=== PATIENT | female | born 1985 | race African-American/Black ===

== ENCOUNTER 2016-10-04 12:58 | Emergency (ER) | payer MEDICAID ==
[~2016-10-04] VITALS: Ht 152.4 cm; Wt 64.0 kg
[2016-10-04 13:16] VITALS: BP 121/56
--- NOTE | 2016-10-04 13:28 | NUR ---
PT. PRESENTS TO ED WITH C/O DECREASED MOVEMENT SINCE LATE LAST NIGHT, PT. STATES SHE IS 20 WEEKS , NO VISIBLE SIGNS OF DISTRESS NOTED, BREATHING EVEN AND UNLABORED, AAOX4, AMBULATORY, GAIT STEADY
[2016-10-04 16:32] VITALS: BP 110/71
--- NOTE | 2016-10-04 16:33 | NUR ---
Patient discharged with v/s stable. Written and verbal after care instructions given and explained. Patient verbalized understanding. Ambulatory with steady gait. All questions addressed prior to discharge. Advised to follow up with PMD.
== END 2016-10-04 16:33 | disposition home or self-care (01) ==
LOC: MED 12:58
PROC: BY4CZZZ Ultrasonography of Second Trimester, Single Fetus (ICD-10-PCS; principal; 2016-10-04)
DX: O36.8120 Decreased fetal movements, second trimester, not applicable or unspecified (principal); O34.219 Maternal care for unspecified type scar from previous cesarean delivery; Z36 Encounter for antenatal screening of mother; Z3A.19 19 weeks gestation of pregnancy
CPT/HCPCS: 76805; 99284

== ENCOUNTER 2022-08-05 15:01 | Inpatient (IN) | payer MEDICAID ==
[~2022-08-05] VITALS: Ht 152.4 cm; Wt 53.5 kg
[2022-08-05] MEDS ORDERED: LORazepam 2 MG/ML VIAL ONE (15:03)
[2022-08-05 15:09] VITALS: BP 132/79
[2022-08-05] MEDS ORDERED: LORazepam 2 MG/ML VIAL IM ONE (15:10)
--- NOTE | 2022-08-05 15:12 | NUR ---
PT SCREAMING STATING THAT SHE CANT BREATHE, REFUSING TO ANSWER QUESTIONS
--- NOTE | 2022-08-05 15:15 | NUR ---
37F BIBA FROM STREETS WITH C/O ALTERED MENTAL STATUS. PER EMS, PT WAS FOUND IN STREETS RUNNING AND YELLING, STATING THAT SHE CAN'T BREATHE. EMS STATES PT TOOK METH AND CONSUMED ALCOHOL. PT AGITATED UPON ARRIVAL, CONTINUING TO STATE THAT SHE CANNOT BREATHE. O2 SATURATION UPON ARRIVAL IS 97% ON RA. PT PLACED ON BEDSIDE MONITOR, DR. ESPINOZA AT BEDSIDE EVALUATING PT.
[2022-08-05 16:07] LABS: BASOPHILS # (AUTO) 0.1 K/uL (0.00-0.22); EOSINOPHILS # (AUTO) 0.6 K/uL (0-0.4); EOSINOPHILS % (AUTO) 8.3 % (0.0-4.0); HEMATOCRIT 44.1 % (36-48); HEMOGLOBIN 14.8 g/dL (12.0-16.0); LYMPHOCYTES # (AUTO) 3.6 K/uL (2.5-16.5); LYMPHOCYTES % (AUTO) 48.5 % (20.5-51.1); MEAN CORPUSCULAR HEMOGLOBIN 31 pg (27-31); MEAN CORPUSCULAR HGB CONC 34 g/dL (33-37); MEAN CORPUSCULAR VOLUME 92.1 fL (80-94); MONOCYTES # (AUTO) 0.4 K/uL (0.8-1.0); MONOCYTES % (AUTO) 5.3 % (1.7-9.3); NEUTROPHILS # (AUTO) 2.7 K/uL (1.8-7.7); NEUTROPHILS % (AUTO) 35.9 % (42.2-75.2); PLATELET COUNT (AUTO) 341 K/uL (140-450); RED BLOOD CELL COUNT(AUTO) 4.79 MIL/uL (4.20-5.40); WHITE BLOOD COUNT (AUTO) 7.5 K/uL (4.8-10.8)
[2022-08-05 16:31] LABS: ANION GAP 19.1 (8-16); ASPARTATE AMINOTRANSFERASE 32 U/L (15-37); CARBON DIOXIDE 22.8 mmol/L (21-32); CHLORIDE 109 mmol/L (98-107); CREATININE 1.1 mg/dL (0.6-1.3); GFR ARICAN-AMERICAN 73 mL/min (>90); GLUCOSE 76 mg/dL (74-106); POTASSIUM 3.9 mmol/L (3.5-5.1); SODIUM SERUM 147 mmol/L (136-145); TOTAL BILIRUBIN 0.1 mg/dL (0.0-1.0); UREA NITROGEN, BLOOD 13 mg/dL (7-18)
--- NOTE | 2022-08-05 16:34 | NUR ---
PT TAKEN TO CT VIA RANGELA.
[2022-08-05 16:35] LABS: ACETAMINOPHEN < 0.5 ug/ml (10-30); SALICYLATE < 2.8 mg/dL (2.8-20.0)
[2022-08-05] MEDS ORDERED: LACTATED RINGERS 1,000 ML IV ONE ×2 (16:50→17:20)
--- NOTE | 2022-08-05 19:05 | NUR ---
JAN SWAB COLLECTED AND WALKED TO LAB.
--- NOTE | 2022-08-05 19:18 | NUR ---
Pt report given to MARCIA Neves. Transfer of care at this time.
[2022-08-05 19:28] LABS: BARBITURATE, URINE NEGATIVE ng/ml (NEG <=200); BENZODIAZEPINE, URINE POSITIVE ng/mL (NEG <=200); CANNABINOID, URINE NEGATIVE ng/mL (NEG <=50); COCAINE, URINE POSITIVE ng/mL (NEG <=300); OPIATE, URINE NEGATIVE ng/mL (NEG <=2000); PHENCYCLIDINE SCREEN,URINE NEGATIVE ng/mL (NEG <=25)
[2022-08-05 19:41] LABS: APPEARANCE,URINE CLEAR (CLEAR); COLOR,URINE YELLOW (YELLOW)
[2022-08-05 19:42] LABS: BLOOD, URINE TRACE (NEGATIVE); LEUKOCYTE ESTERASE ,URINE NEGATIVE (NEGATIVE); NITRITE, URINE NEGATIVE (NEGATIVE); PH,URINE 6.5 (5.0-9.0); UGLUCOSE NEGATIVE (NEGATIVE)
[2022-08-05 19:43] LABS: BILIRUBIN,URINE NEGATIVE (NEGATIVE)
--- NOTE | 2022-08-05 19:48 | NUR ---
RESTING QUIETLY WITH EYES CLOSED, RESPIRATIONS REGULAR AND UNLABORED
[2022-08-05 20:28] LABS: RBC,URINE 0-5 /HPF (0-5); TRICHOMONAS,URINE Rare /HPF (None Seen); WBC,URINE 0-5 /HPF (0-5); YEAST,URINE None Seen /HPF (None Seen)
[2022-08-05 20:29] LABS: URIC ACID CRYSTALS,URINE 0-10 /HPF (None Seen)
[2022-08-05] MEDS ORDERED: ACETAMINOPHEN 325 MG TAB PO PRN (21:00)
[2022-08-05] MEDS ORDERED: ONDANSETRON 4 MG/2 ML VIAL IVP PRN (21:00)
[2022-08-05] MEDS ORDERED: LORazepam 2 MG/ML VIAL IVP PRN (21:00)
[2022-08-05] MEDS: NACL 0.9% 1,000 ML IV SCH (21:00)
[2022-08-05] MEDS ORDERED: MORPHINE SULFATE 2 MG/ML SYR IVP PRN (21:00)
[2022-08-05 23:30] VITALS: BP 132/72
[2022-08-05 23:55] VITALS: BP 132/72
--- NOTE | 2022-08-05 23:59 | NUR ---
PATIENT ADMITTED FROM ED STABLE VITALS SIGNS IN NORMAL LIMITS SR 86 ON TELE ABLE TO ANSWERS QUESTION ALERT ORIENTED TIME 3 PATIENT CAME FOR ALCOHOL WITHDRAW PATIENT ASKING FOR INFORMS TO HER MOTHER ABOUT LOCATION AND CONDITIONS
--- NOTE | 2022-08-06 00:03 | NUR ---
MOTHER JAMA INFORMED ABOUT PATIENT LOCATION AND CONDITION
--- NOTE | 2022-08-06 02:22 | NUR ---
PATIENT STABLE SLEEPING AT THIS TIME VITALS SIGNS IN NORMAL LIMITS SR 92 ON MONITOR
[2022-08-06 03:56] VITALS: BP 129/72
[2022-08-06] MEDS: NACL 0.9% 1,000 ML IV SCH ×3 (04:54→21:11)
[2022-08-06 06:04] LABS: BASOPHILS % (AUTO) 0.6 % (0.0-2.0); EOSINOPHILS # (AUTO) 0.3 K/uL (0-0.4); EOSINOPHILS % (AUTO) 4.5 % (0.0-4.0); HEMATOCRIT 40.6 % (36-48); HEMOGLOBIN 13.7 g/dL (12.0-16.0); LYMPHOCYTES # (AUTO) 3.1 K/uL (2.5-16.5); LYMPHOCYTES % (AUTO) 43.6 % (20.5-51.1); MEAN CORPUSCULAR HEMOGLOBIN 31 pg (27-31); MEAN CORPUSCULAR HGB CONC 34 g/dL (33-37); MEAN CORPUSCULAR VOLUME 91.3 fL (80-94); MONOCYTES # (AUTO) 0.5 K/uL (0.8-1.0); MONOCYTES % (AUTO) 6.6 % (1.7-9.3); NEUTROPHILS # (AUTO) 3.2 K/uL (1.8-7.7); NEUTROPHILS % (AUTO) 44.7 % (42.2-75.2); PLATELET COUNT (AUTO) 307 K/uL (140-450); RED BLOOD CELL COUNT(AUTO) 4.44 MIL/uL (4.20-5.40); WHITE BLOOD COUNT (AUTO) 7.1 K/uL (4.8-10.8)
[2022-08-06 06:24] LABS: ALBUMIN 3.7 g/dL (3.4-5.0); ANION GAP 12.7 (8-16); CREATININE 0.7 mg/dL (0.6-1.3); MAGNESIUM 1.7 mg/dL (1.8-2.4); POTASSIUM 3.7 mmol/L (3.5-5.1); TOTAL BILIRUBIN 0.5 mg/dL (0.0-1.0)
[2022-08-06 08:00] VITALS: BP 138/81
[2022-08-06] MEDS: metroNIDAZOLE 500 MG TAB PO SCH ×2 (09:11→21:11)
--- NOTE | 2022-08-06 09:12 | NUR ---
PATIENT HAS BEEN SCREENED AND CATEGORIZED LOW NUTRITION RISK. PATIENT WILL BE SEEN WITHIN 7 DAYS OF ADMISSION. 08/12/[address] REVIEWED BY SUSAN ARNOLD RD
[2022-08-06 12:00] VITALS: BP 130/74
[2022-08-06] MEDS ORDERED: MAG SULF 2000 MG/WATER PREMIX 50 ML IV PRN (13:05)
[2022-08-06 16:00] VITALS: BP 134/81
--- NOTE | 2022-08-06 16:26 | NUR ---
DC PLANNING SW MET W/ PT AT BEDSIDE TO COMPLETE ASSESSMENT. PT IS HEARING IMPAIRED AND REQUESTED SW TO PULL DOWN MASK SHE READS LIPS. SW INQUIRED IF PT PREFERRED TO UTILIZE SERVICE CENTER TECHNICIAN SERVICE, PT DECLINED. PT REPORTS RESIDING IN A SINGLE STORY HOME WITH HER BROTHER AND UNCLE AT THE ADDRESS LISTED ON FILE. PT IDENTIFIED JAMA REDDY, MOTHER, EMERGENCY CONTACT. PT DECLINED TO ADD ADDITIONAL EC. PT DENIES AD IN PLACE HOWEVER, DECLINED AD OFFERED BY MADDY. PT REPORTS LAST VISIT WITH PCP, 4-5 YRS AGO. PT DENIES TAKING MEDICATION AT THIS TIME AND STRUGGLED TO PROVIDE PHARMACY UTILIZED, WHEN NEEDED. PT REPORTS BEING INDEPENDENT IN ALL ACTIVITIES AND DENIES USE OF DME. PT REPORTS HX OF ANXIETY AND DEPRESSION. PT REPORTS SUBSTANCE USE HX OF ALCOHOL USE. PT REPORTS DRINKING A "TALL BOTTLE" OF TAAKA VODKA EVERYDAY. PT REPORTS STARTING IN THE AFTERNOON AND IS AWARE HER DRINKING IS AN ISSUE. PT REPORTS UTILIZING AMPHETAMINES ROUGHLY 3X WEEK, LAST USE 2 DAYS AGO. PT REPORTS RECENT USE OF " CRACK" WHICH SHE SMOKED YESTERDAY. SW PROVIDED PT WITH PSYCHOEDUCATION ON SENIOR FUNCTIONAL ANALYST USE OF ILLICIT SUBSTANCE USE, PT RECEPTIVE AND ACCEPTED SUBSTANCE USE AND MENTAL HEALTH RESOURCES PROVIDED BY MADDY. PT DENIES HX OF HH. PT REPORTS "LOTS OF FAMILY SUPPORT" AND REPORTS FAMILY( BROTHERS, SISTERS, MOTHER AND UNCLES )ARE ALWAYS VERY SUPPORTIVE. PT REPORTS DC PLAN IS TO RETURN HOME W/ MOTHER PROVIDING TRANSPORTATION, WHEN MEDICALLY STABLE. SW INQUIRED ON ADDITIONAL RESOURCES NEEDED, PT DECLINED. Addendum: 08/06/22 at 1628 by Chica RANDALL Amended: Links added.
[2022-08-06 20:00] VITALS: BP 132/72
[2022-08-07 00:10] VITALS: BP 130/59
--- NOTE | 2022-08-07 01:08 | NUR ---
PATIENT STABLE VITALS SIGNS IN NORMAL LIMITS NOT COMPLAINING OF PAIN AT THIS TIME SR 86 ON MONITOR DIAPER WAS CHANGE FOR BM AND URINE INCONTINENCE
--- NOTE | 2022-08-07 01:24 | NUR ---
PATIENT STABLE VITALS SIGNS IN NORMAL LIMITS NOT COMPLAINING OF PAIN AT THIS TIME
[2022-08-07 04:00] VITALS: BP 128/62
[2022-08-07] MEDS: NACL 0.9% 1,000 ML IV SCH (04:37)
--- NOTE | 2022-08-07 06:36 | NUR ---
PATIENT STABLE VITALS SIGNS IN NORMAL LIMITS NOT COMPLAINING OF PAIN
--- NOTE | 2022-08-07 07:30 | NUR ---
RECEIVED PT FROM NIGHT RN, PT IS ASLEEP AND LYING ON THE BED WITH SIDE RAILS UP AND CALL,LIGHT WITHIN REACH, IV LINE NOTED ON THE RIGHT HAND G. 22 WITH NS INFUSING AT 75ML.HR, PT IS ON ROOM AIR, BILATERAL ARMS SCABS NOTED, NO SIGN OF DISTRESS NOTED AND WILL CONTINUE TO MONITOR PT.
[2022-08-07 08:00] VITALS: BP 143/81
[2022-08-07] MEDS: metroNIDAZOLE 500 MG TAB PO SCH (09:52)
[2022-08-07] MEDS ORDERED: FOLI1TAB89 PO (11:54)
[2022-08-07] MEDS ORDERED: METR-435 PO (11:54)
[2022-08-07] MEDS ORDERED: THIA100T45 PO (11:54)
[2022-08-07 12:00] VITALS: BP 132/90
--- NOTE | 2022-08-07 12:40 | NUR ---
DISCHARGED PT TO HOME ACCOMPANIED BY MOTHER, DISCHARGE TEACHINGS AND INSTRUCTIONS WERE GIVEN TO PT AND VERBALIZED UNDERSTANDING, IV LINE REMOVED AND PT IS STABLE AT THIS TIME.
== END 2022-08-07 12:40 | disposition home or self-care (01) | DRG 52 ==
LOC: MED 15:01 → MTU 21:07 → MMU 22:00 → MTU 08-06 22:05
PROVIDERS: ADMIT Hospitalist; ATTEND Hospitalist
DX: G92.8 Other toxic encephalopathy (principal); I21.A1 Myocardial infarction type 2; A59.9 Trichomoniasis, unspecified; F14.10 Cocaine abuse, uncomplicated; E86.0 Dehydration; J45.909 Unspecified asthma, uncomplicated; Z20.822 Contact with and (suspected) exposure to COVID-19; Z59.00 Homelessness unspecified
CPT/HCPCS: 36415; 70450; 71045; 80053; 80305; 81001; 81025; 82550; 82553; 83735; 84484; 85025; 93005; 96372; 99285; G0480; G0482; J2060; J3475; Q0092

== ENCOUNTER 2023-03-08 01:20 | Emergency (ER) | payer MEDICAID ==
[~2023-03-08] VITALS: Ht 170.2 cm; Wt 55.3 kg
[~2023-03-08 01:20] MED LIST: FOLI1TAB89 PO; METR-435 PO; THIA100T45 PO
[2023-03-08 02:36] VITALS: BP 148/88; PULSE 82; RESP 16; TEMP 98; O2SAT 98
[2023-03-08 03:40] VITALS: O2SAT 98
[2023-03-08] MEDS ORDERED: ONDANSETRON 4 MG ODT PO ONE (03:55)
[2023-03-08] MEDS ORDERED: DICYCLOMINE 10 MG CAP PO ONE (03:55)
[2023-03-08] MEDS ORDERED: FAMOTIDINE 20 MG TAB PO ONE (03:55)
[2023-03-08 04:32] LABS: APPEARANCE,URINE CLEAR (CLEAR); BILIRUBIN,URINE NEGATIVE (NEGATIVE); BLOOD, URINE 1+ (NEGATIVE); COLOR,URINE YELLOW (YELLOW); LEUKOCYTE ESTERASE ,URINE NEGATIVE (NEGATIVE); NITRITE, URINE NEGATIVE (NEGATIVE); PROTEIN,URINE NEGATIVE (NEGATIVE); UGLUCOSE NEGATIVE (NEGATIVE); UROBILINOGEN,URINE 0.2 EU/dL (0.2 - 1)
[2023-03-08 04:38] LABS: BACTERIA,URINE None Seen /HPF (None Seen); MUCUS,URINE 1+ /LPF (None Seen); RBC,URINE 0-5 /HPF (0-5); SQUAMOUS EPITHELIAL CELL,UR 4-10 (MOD) /LPF (0-3 (FEW)); TRICHOMONAS,URINE None Seen /HPF (None Seen); WBC,URINE 0-5 /HPF (0-5); YEAST,URINE None Seen /HPF (None Seen)
[2023-03-08 05:17] LABS: FLU A ANTIGEN negative (NEGATIVE); FLU B ANTIGEN NEGATIVE (NEGATIVE)
[2023-03-08] MEDS ORDERED: AZITHROMYCIN 250 MG TAB PO ONE (05:35)
[2023-03-08] MEDS ORDERED: ALUM355S5 PO (05:35)
[2023-03-08] MEDS ORDERED: ONDA-188 PO (05:35)
[2023-03-08] MEDS ORDERED: ALUMINUM HYD/MAG/SIMETHICONE 30 ML UDC PO ONE (05:35)
[2023-03-08] MEDS ORDERED: AZIT250T3 PO (05:35)
[2023-03-08] MEDS ORDERED: MUC600 PO (05:35)
== END 2023-03-08 06:04 | disposition home or self-care (01) ==
LOC: MED 01:20
DX: J18.9 Pneumonia, unspecified organism (principal); R11.2 Nausea with vomiting, unspecified; K29.70 Gastritis, unspecified, without bleeding; J45.909 Unspecified asthma, uncomplicated; Z79.899 Other long term (current) drug therapy; Z20.822 Contact with and (suspected) exposure to COVID-19
CPT/HCPCS: 71046; 81001; 81025; 87081; 87426; 87804; 99284; Q0162